=== PATIENT | female | born 1995 | race Caucasian/White ===

== ENCOUNTER 2018-01-31 03:49 | Emergency (ER) | payer MEDICAID, OTHER ==
[~2018-01-31] VITALS: Ht 167.6 cm; Wt 86.0 kg
[2018-01-31] MEDS ORDERED: METH500T7 PO (04:24)
[2018-01-31] MEDS ORDERED: KETOROLAC 30 MG/1 ML ONE (05:20)
[2018-01-31] MEDS ORDERED: HYDROcodone/APAP 5/325 TABLET ONE (05:20)
[2018-01-31] MEDS ORDERED: DIAZEPAM 5 MG TABLET ONE (05:21)
[2018-01-31] MEDS ORDERED: HYDROcodone/APAP 5/325 TABLET PO ONE (05:30)
[2018-01-31] MEDS ORDERED: DIAZEPAM 5 MG TABLET PO ONE (05:30)
[2018-01-31] MEDS ORDERED: KETOROLAC 30 MG/1 ML IM ONE (05:30)
[2018-01-31 07:07] VITALS: BP 106/62
== END 2018-01-31 07:09 | disposition home or self-care (01) ==
LOC: ED 07:07
DX: M54.41 Lumbago with sciatica, right side (principal)
CPT/HCPCS: 96372; 99283; J1885